=== PATIENT | female | born 1955 | race Caucasian/White ===

== ENCOUNTER 2018-02-22 11:19 | Emergency (ER) | payer BC, OTHER ==
[2018-02-22 12:29] VITALS: BP 122/60
--- NOTE | 2018-02-22 12:37 | UC ---
Complaint Female HPI - HPI Summary HPI Summary: 62 yo female presents with burning with urination that began this morning. She says that she has had UTIs in the past and this feels the same. She is going out of town for 2 weeks starting tomorrow and is concerned she may have an infection. She denies fever, chills, abdominal pain, n/v, hematuria, flank pain , or vaginal discharge/bleeding. - History Of Current Complaint Chief Complaint: UCGU Stated Complaint: URINARY Time Seen by Provider: 02/22/18 12:37 Hx Obtained From: Patient Onset/Duration: Sudden Onset Severity Initially: Moderate Severity Currently: Moderate Pain Intensity: 5 Pain Scale Used: 0-10 Numeric - Allergies/Home Medications Allergies/Adverse Reactions: Allergies Allergy/AdvReac Type Severity Reaction Status Date / Time No Known Allergies Allergy Verified 02/22/18 12:22 Home Medications: Home Medications Fluticasone NASAL SPRAY 50MCG* [Flonase NASAL SPRAY 50MCG*] 2 spray BOTH NARES DAILY 02/22/18 [History Confirmed 02/22/18] Levothyroxine TAB* [Synthroid TAB*] 137 mcg PO DAILY 02/22/18 [History Confirmed 02/22/18] Loratadine/Pseudoephedrine [Claritin-D 12 Hour] 1 tab PO DAILY 02/22/18 [ History Confirmed 02/22/18] PMH/Surg Hx/FS Hx/Imm Hx - Additional Past Medical History Additional PMH: Allergies Endocrine History: Hypothyroidism - Surgical History Surgical History: Yes Surgery Procedure, Year, and Place: 2 C-SECTIONS. CHOLYCYSTECTOMY - Family History Known Family History: Positive: None - Social History Occupation: Employed Full-time Lives: With Family Alcohol Use: Occasionally Substance Use Type: None Smoking Status (MU): Former Smoker Type: Cigarettes When Did the Patient Quit Smoking/Using Tobacco: 20 YRS AGO Review of Systems Constitutional: Negative Skin: Negative Respiratory: Negative Cardiovascular: Negative Gastrointestinal: Negative Genitourinary: Dysuria Neurovascular: Negative Neurological: Negative Psychological: Negative All Other Systems Reviewed And Are Negative: Yes Physical Exam - Summary Physical Exam Summary: GENERAL: NAD. WDWN. No pain distress. SKIN: No rashes, sores, lesions, or open wounds. NECK: Supple. Nontender. No lymphadenopathy. CHEST: CTAB. No r/r/w. No accessory muscle use. Breathing comfortably and in no distress. CV: RRR. Without m/r/g. Pulses intact. Cap refill <2seconds ABDOMEN: Soft. NTTP. No distention or guarding. No CVA tenderness. Bowel sounds present NEURO: Alert. PSYCH: Age appropriate behavior. Triage Information Reviewed: Yes Vital Signs: Initial Vital Signs Temp 97.8 F 02/22/18 12:23 Pulse 58 02/22/18 12:23 Resp 18 02/22/18 12:23 BP 122/60 02/22/18 12:23 Pulse Ox 100 02/22/18 12:23 Laboratory Tests 02/22/18 12:45 POC Urine Color Light yellow POC Urine Clarity Clear POC Urine pH 5.5 POC Ur Specif [place] <= 1.005 L POC Urine Protein Negative POC Ur Glucose (UA) Negative POC Urine Ketones Trace A POC Urine Blood Negative POC Urine Nitrite Negative POC Urine Bilirubin Negative POC Urine Urobilinogen 0.2 POC U Leukocyte Esteras Negative Vital Signs Reviewed: Yes Complaint Female Dx - Course Course Of Treatment: Discussed with pt that her UA did not show any signs of infection. She is adamant that she has a UTI as there is "nothing else that it could be" and is requesting antibiotic treatment. I will send her urine for culture and treat her with bactrim. Advised to f/u if her symptoms persist or worsen. - Differential Dx/Diagnosis Provider Diagnoses: Dysuria Discharge - Sign-Out/Discharge Documenting (check all that apply): Patient Departure All imaging exams completed and their final reports reviewed: No Studies - Discharge Plan Condition: Stable Disposition: HOME Prescriptions: Sulfamethox/Trimethoprim DS* [Bactrim DS 800/160 TAB*] 1 tab PO BID #10 tab Patient Education Materials: Urinary Tract Infection in Women (DC) Referrals: Ivis Martines MD [Primary Care Provider] - Additional Instructions: If you develop a fever, shortness of breath, chest pain, new or worsening symptoms - please call your PCP or go to the ED. - Billing Disposition and Condition Condition: STABLE Disposition: Home - Attestation Statements Provider Attestation: Chart reviewed. I was available for consult. I did not see this patient and was not involved in any disposition or treatment decisions.
--- NOTE | 2018-02-24 09:48 | UC ---
- Progress Note Progress Note: neg urine cx stop bactrim recheck prn f/u with PCP Discharge - Sign-Out/Discharge Documenting (check all that apply): Patient Departure All imaging exams completed and their final reports reviewed: No Studies - Discharge Plan Condition: Stable Disposition: HOME Prescriptions: Sulfamethox/Trimethoprim DS* [Bactrim DS 800/160 TAB*] 1 tab PO BID #10 tab Patient Education Materials: Urinary Tract Infection in Women (DC) Referrals: Ivis Martines MD [Primary Care Provider] - Additional Instructions: If you develop a fever, shortness of breath, chest pain, new or worsening symptoms - please call your PCP or go to the ED. - Billing Disposition and Condition Condition: STABLE Disposition: Home
== END 2018-02-22 13:01 | disposition home or self-care (01) ==
LOC: UCCORT 11:19
DX: R30.0 Dysuria (principal); Z87.891 Personal history of nicotine dependence
CPT/HCPCS: 81003; 87086; 99202; G0463